=== PATIENT | male | born 1985 | race Two or more races ===

== ENCOUNTER 2019-05-26 05:56 | Day surgery (SDC) | payer OTHER ==
[2019-05-23 16:01] VITALS: BMI 38.7
[2019-05-26] MEDS ORDERED: SODIUM CHLORIDE 0.9% P/F 10 ML VIAL IJ ONE (07:19)
[2019-05-26] MEDS ORDERED: MIDAZOLAM HCL 2 MG/2 ML SINGLE DOSE VIAL ONE ×3 (07:19→07:48)
[2019-05-26] MEDS ORDERED: BUPIVACAINE LIPOSOME/PF (EXPAREL) 266 MG/20 ML VIAL ONE (07:19)
[2019-05-26] MEDS ORDERED: PROPOFOL 20 ML ONE ×4 (07:27→10:11)
[2019-05-26] MEDS ORDERED: VANCOMYCIN 1,000 MG VIAL (RESTRICTED TO ID ONLY) ONE (07:40)
[2019-05-26] MEDS ORDERED: EPINEPHrine 1:1,000 1 MG/1 ML - 30ML VIAL (INJECTION) ONE (07:40)
[2019-05-26] MEDS ORDERED: VANCOMYCIN 1,000 MG VIAL (RESTRICTED TO ID ONLY) IVPB ONE (08:45)
--- NOTE | 2019-05-26 11:06 | OP ---
Operative Note - Note: Operative Date: 05/26/19 Pre-Operative Diagnosis: L knee ACL rupture, lateral meniscal tear Operation: left knee ACL reconstruction with allograft, medial meniscal repair, lateral meniscal debridement, excision of loose body Implants: fast fix x1 (1 removed). tight rope x2 Post-Operative Diagnosis: Same as Pre-op (+ medial meniscal tear) Surgeon: Abelardo Davidson Product Info Specialist: Ethan Mendez Anesthesiologist/CUSTOMER SERVICE REPRESENTATIVE TEACHER: Ethan Kincaid Anesthesia: Spinal, Fractional Operative Report Dictated: Yes
[2019-05-26] MEDS ORDERED: ONDANSETRON 4 MG/2 ML VIAL IVPUSH PRN (11:10)
[2019-05-26] MEDS ORDERED: oxyCODONE HCL 5 MG TABLET PO PRN ×2 (11:10)
[2019-05-26] MEDS ORDERED: LACTATED RINGERS SOLUTION 1,000 ML IV SCH (11:15)
[2019-05-26 14:49] VITALS: BP 131/74; PULSE 69; TEMP 98
--- NOTE | 2019-05-26 14:52 | OP ---
DATE OF OPERATION: 05/26/2019 PREOPERATIVE DIAGNOSES: Left knee anterior cruciate ligament rupture, lateral meniscal tear. POSTOPERATIVE DIAGNOSES: Left knee anterior cruciate ligament rupture, lateral meniscal tear, medial meniscal tear. PROCEDURE: Left knee arthroscopy with anterior cruciate ligament reconstruction utilizing allograft, partial lateral meniscectomy, medial meniscal repair. SURGEON: Abelardo Davidson MD TAX INVESTIGATOR: Ethan Mendez, physician's physiotherapist's assistant, whose skillful assistance was necessary for the safe and timely performance of this procedure. Mr. Mendez was able to provide limb positioning, driving the camera, assist in manipulation of arthroscopic instruments, graft insertion and graft fixation hardware. He was also able to provide graft preparation. ANESTHESIA: Spinal plus regional. POSTOPERATIVE CONDITION: Stable. COMPLICATIONS: None. IMPLANTS: [employer] TightRope x2, [employer] Fast-Fix times 1. BLOOD LOSS: Minimal. POSTOPERATIVE CONDITION: Stable. COMPLICATIONS: One mis-deployed anchor. INDICATIONS: This is a pleasant gentleman who had been suffering from knee instability for a long time. He was found to have meniscal tear and ACL insufficiency on MRI. Despite conservative care, he did not improve and elected to proceed with surgery. Surgical risks were reviewed in detail, including bleeding, infection, neurovascular injury, need for further surgery, postoperative pain and stiffness, progression of osteoarthritis, graft failure or re-rupture, persistent instability. We reviewed postoperative rehabilitation limitations. We discussed medical risks such as heart attack, stroke, DVT, PE, and . I addressed the use of perioperative antibiotic and DVT prophylaxis. I addressed all the patient's questions and concerns. He voiced understanding and elected to proceed. PROCEDURE: The patient was brought to the operating room after administration of a regional block in the preoperative holding area. Spinal anesthetic was administered. The patient was then placed supine on the operating room table. Examination of the left knee demonstrated positive Eladia, positive pivot shift, full range of motion, no collateral or PCL instability. The patient was then prepped and draped in the usual sterile fashion. Preoperative dose of antibiotics was given and the usual timeout procedure was performed. The portal sites were then marked out on the knee. An 11 blade was used to incise the lateral portal. The arthroscope was passed into the joint. Examination of patellofemoral joint demonstrated some very minimal superficial arthrosis. Passing the arthroscope into the notch demonstrated a completely ruptured ACL. The PCL was seen to be intact. A medial portal was then established under spinal needle localization. Entering the medial compartment, a loose body which was approximately 1 cm x 0.5 cm was visualized. The loose body was shaved down a bit and then excised using a grasper. The medial articular surface appeared with only mild superficial fraying. The meniscus was initially examined and found to have no lesions; however, on probing, there was found to be an undersurface tear in the posterior horn of the medial meniscus. This was first debrided using a shaver. Given the peripheral tear and instability present, it was decided to perform a repair. An thermite welder device was placed and the initial Fast-Fix device was inserted and the first anchor was deployed. The device was then passed in a horizontal mattress fashion, and on deploying the 2nd anchor, it did not correctly deploy, necessitating removal of the previous suture. The anchor was left in place as it was outside the capsule. The 2nd device was used in the same location and this one successfully deployed, securing the meniscus. The meniscus was now probed and found to be stable. The attention was then turned to the lateral compartment. Here, moderate partial-thickness articular thinning was noted on the lateral femoral condyle. The posterior horn of the lateral meniscus was not present. There was a small flap at the posterior portion of the body, which was unstable, which was debrided using the shaver. The arthroscope was then passed back into the notch. Here, the remnant of the ACL was debrided. The soft tissue was removed from the lateral wall of the notch and the ACL insertion on the tibia. This was done using electrocautery. The FlipCutter drill guide was now passed onto the lateral bifurcate ridge at the anatomic origin of the ACL. A small incision was then made laterally. Blunt spreading was carried down to the femur. The trocar was inserted down to the level of the femur. The FlipCutter device was now drilled into the knee. FlipCutter placement was verified. The FlipCutter was then toggled to 10.5. It should be noted that while the arthroscopy was being performed, the physician's physiotherapist's assistant was preparing the graft on the back table. The graft was prepared into a 70 x 10.5 graft. It was loaded onto 2 TightRopes and whipstitched firmly in place. The 10.5 socket was now created on the femoral side approximately 30 mm long x 10.5. A passing suture was placed. A tibial socket was now created as well, 40 mm x 10.5. A passing suture was then placed here. A tibial socket was created with the same technique, first placing the drill guide in through a small incision in the skin with the trocar inserted. With both tunnels satisfactory, the graft was passed through the femoral side. The repair was initially visualized directly through the socket to seat firmly on the femoral cortex. The graft was then toggled 20 mm into the femoral side. The tibial side was then toggled in. The knee was now cycled. The button was then loaded on. This was then tightened with the knee in 10 degrees of flexion. The femoral side was then re-tightened as well. The knee was now examined with a Eladia maneuver and was found to be stable. At this point, the extra sutures were tied and then cut. The subcutaneous tissue was approximated using 2-0 Vicryl. The skin was closed using 3-0 nylon. Sterile dressings were placed. The patient was transferred to recovery room in stable condition after placement in a knee immobilizer. Nathalie [id number]
== END 2019-05-26 15:30 | disposition home or self-care (01) ==
LOC: FASU 05:56
PROVIDERS: ATTEND Orthopaedic Surgery Sports Medicine
PROC: 0SQD4ZZ Repair Left Knee Joint, Percutaneous Endoscopic Approach (ICD-10-PCS; 2019-05-26)
PROC: 0SBD4ZZ Excision of Left Knee Joint, Percutaneous Endoscopic Approach (ICD-10-PCS; 2019-05-26)
PROC: 0MRP47Z Replacement of Left Knee Bursa and Ligament with Autologous Tissue Substitute, Percutaneous Endoscopic Approach (ICD-10-PCS; principal; 2019-05-26 08:39)
DX: S83.512A Sprain of anterior cruciate ligament of left knee, initial encounter (principal); S83.282A Other tear of lateral meniscus, current injury, left knee, initial encounter; S83.242A Other tear of medial meniscus, current injury, left knee, initial encounter; X58.XXXA Exposure to other specified factors, initial encounter; Y93.9 Activity, unspecified; Y92.9 Unspecified place or not applicable
CPT/HCPCS: 94760